=== PATIENT | female | born 1980 | race Caucasian/White ===

== ENCOUNTER 2020-02-09 00:57 | Emergency (ER) | payer OTHER, SELFPAY ==
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
--- NOTE | ~2020-02-09 | CT_ITS ---
EXAMINATION: CT brain wo con INDICATION: Headache COMPARISON: None TECHNIQUE: Standard unenhanced head CT. The dose-length product (DLP) was 605.33 mGy-cm. The mA was a djusted according to patient size. Iterative reconstruction technique was employed. FINDINGS: There is no intracranial hemorrhage, acute infarction, or abnormal mass lesion. The ventric les are normal. There is no abnormal mass effect or midline shift. The reyna-white matter differentiat ion is normal. The basal cisterns are patent. The orbits are normal. The paranasal sinuses, mastoids and calvarium are normal. IMPRESSION: 1. No acute intracranial abnormality. Reviewed, dictated and finalized at location B.
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
[2020-02-09 01:05] VITALS: BP 130/71; PULSE 111; RESP 20; TEMP 36.8; O2SAT 98
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
[2020-02-09 01:12] VITALS: BP 133/80; PULSE 101; RESP 19; TEMP 37; O2SAT 98
[2020-02-09] MEDS: HYDROMORPHONE HCL 1 MG/ML INJ 0.5 MG IM (03:05)
[2020-02-09 03:31] VITALS: BP 147/84; PULSE 88; RESP 19; TEMP 36.8; O2SAT 100
== END 2020-02-09 03:32 | disposition home or self-care (01) ==
PROVIDERS: Emergency Provider Emergency Medicine; PCP Emergency Medicine
DX: S00.83XA Contusion of other part of head, initial encounter (principal); S70.02XA Contusion of left hip, initial encounter; S16.1XXA Strain of muscle, fascia and tendon at neck level, initial encounter; S93.401A Sprain of unspecified ligament of right ankle, initial encounter; M79.7 Fibromyalgia; K58.9 Irritable bowel syndrome, unspecified; G50.0 Trigeminal neuralgia; Z87.440 Personal history of urinary (tract) infections; Z98.1 Arthrodesis status; M19.071 Primary osteoarthritis, right ankle and foot; V49.40XA Driver injured in collision with unspecified motor vehicles in traffic accident, initial encounter
CPT/HCPCS: 70450; 70486; 71045; 72040; 72125; 73502; 73521; 73610; 96372; 99284; A9270; J1170

== ENCOUNTER 2020-06-23 22:22 | Emergency (ER) | payer OTHER, SELFPAY ==
--- NOTE | ~2020-06-23 | XR_ITS ---
EXAMINATION: XR hip LT min 2V DATE: 06/23/2020 22:49 INDICATION: Left hip pain TECHNIQUE: Anteroposterior and frog-leg lateral views of the left hip were obtained. COMPARISON: 02/09/2020 FINDINGS: Retrograde intramedullary jude spanning a healed diaphyseal fracture of the left femur which is in bernard r-anatomic alignment. There is also been a prior left acetabular fracture with cannulated lag screw e xtending across the anterior column into the superior pubic ramus and malleable plate and screws exte nding along the posterior column to the inferior pubic ramus. Bone alignment is near-anatomic. There is some flattening of the cephalad aspect of the right femoral head which is suspicious for avascular necrosis and collapse of the articular surface. Severe nonuniform joint space narrowing at the left hip likely representing secondary osteoarthritis. No other fractures identified. IMPRESSION: 1. Suggestion of avascular necrosis with collapse of the cephalad articular surface of the left femor al head with severe secondary osteoarthritis at the left hip. 2. Internal fixation at the left acetabulum and across an old healed left femoral diaphyseal fracture . Reviewed, dictated and finalized at location A. IMPRESSION: 1. Suggestion of avascular necrosis with collapse of the cephalad articular jing face of the left femoral head with severe secondary osteoarthritis at the left hip. 2. Internal fixation at the left acetabulum and across an old healed left femor al diaphyseal fracture.
--- NOTE | ~2020-06-23 | CT_ITS ---
EXAMINATION: CT hip LT wo con DATE: 06/24/2020 00:01 INDICATION: Severe left hip pain TECHNIQUE: High resolution computed tomography (CT) of the left hip was performed without intravenous contrast. Additional sagittal and coronal reconstructions were performed. The dose-length product wa s 771.79 mGy-cm. COMPARISON: Left hip radiographs dated 06/23/2020 FINDINGS: Postoperative changes at the left hip including the cannulated leg screw extending across the anterio r column into the lateral side of the superior pubic ramus and a malleable plate and screws extending along the posterior column to the atrium and lateral side of the inferior pubic ramus. Patchy lucenc y and sclerosis at the superior and anterosuperior aspect of the left femoral head with collapse of t he overlying articular surface consistent with osteonecrosis/avascular necrosis. There is severe seco ndary osteoarthritis at the left hip. Partially visualized retrograde intramedullary jude with proxima l interlocking screw spanning an old healed mid diaphyseal fracture of the left femur. Moderate-sized left hip joint effusion with some calcific debris in the dependent aspect of the effusion. IMPRESSION: 1. 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 Reviewed, dictated and finalized at location A. IMPRESSION: 1. 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
[2020-06-23 22:24] VITALS: BP 133/65; PULSE 111; RESP 15; TEMP 35.8; O2SAT 100
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
[2020-06-23] MEDS: KETOROLAC (*BKC) 60 MG/2 ML VIAL IM (22:48)
--- NOTE | 2020-06-23 23:04 | PC.NURSE ---
Patient ambulated to the bathroom with minimal assist.
[2020-06-23] MEDS: oxyCODONE/ACETAMINOPHEN 5-325 MG TABLET 1 TABLET PO (23:39)
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
== END 2020-06-24 01:02 | disposition home or self-care (01) ==
PROVIDERS: Emergency Provider Emergency Medicine
DX: M87.9 Osteonecrosis, unspecified (principal); M79.7 Fibromyalgia; K58.9 Irritable bowel syndrome, unspecified; Z87.440 Personal history of urinary (tract) infections; Z98.1 Arthrodesis status
CPT/HCPCS: 73502; 73700; 96372; 99284; A9270; J1885